=== PATIENT | female | born 1965 | race Two or more races ===

== ENCOUNTER 2020-10-31 18:59 | Emergency (ER) | payer OTHER ==
[~2020-10-31] VITALS: Ht 162.6 cm; Wt 81.6 kg
[2020-10-31] MEDS ORDERED: MEDROLPACK PO (21:42)
[2020-10-31] MEDS ORDERED: NAPROXEN375 MG PO (21:42)
== END 2020-10-31 21:49 | disposition home or self-care (01) ==
LOC: ER 18:59
DX: L55.0 Sunburn of first degree (principal); L53.8 Other specified erythematous conditions; L56.8 Other specified acute skin changes due to ultraviolet radiation; X32.XXXA Exposure to sunlight, initial encounter; Y93.89 Activity, other specified; Y92.832 Beach as the place of occurrence of the external cause; Y99.8 Other external cause status